=== PATIENT | male | born 1940 | race Caucasian/White ===

== ENCOUNTER 2024-04-15 14:18 | Emergency (ER) | payer SELFPAY ==
[~2024-04-15] VITALS: Ht 182.9 cm; Wt 95.5 kg
[2024-04-15 14:25] VITALS: TEMP 97.9
[2024-04-15 15:50] VITALS: BP 166/91; PULSE 72
== END 2024-04-15 15:50 | disposition home or self-care (01) ==
LOC: COL.ER 14:18
DX: S61.412A Laceration without foreign body of left hand, initial encounter (principal); Z79.82 Long term (current) use of aspirin; W31.2XXA Contact with powered woodworking and forming machines, initial encounter; Y93.89 Activity, other specified